=== PATIENT | female | born 1995 | race Two or more races ===

== ENCOUNTER 2021-08-11 16:40 | Inpatient (IN) | payer OTHER ==
[~2021-08-11] VITALS: Ht 167.6 cm; Wt 66.2 kg
[2021-08-11] MEDS ORDERED: IRON325 MG PO (20:11)
[2021-08-11] MEDS ORDERED: PRENATAL TABLE1 EAC1 PO (20:11)
[2021-08-15] MEDS ORDERED: IBUPROFEN600 MG PO (10:58)
== END 2021-08-15 14:23 | disposition home or self-care (01) | DRG 787 ==
LOC: LDR 16:40 → SURG-SUITE 08-12 20:33
PROVIDERS: Obstetrics & Gynecology; ADMIT Student in an Organized Health Care Education/Training Program; ATTEND Student in an Organized Health Care Education/Training Program
PROC: 3E0P7VZ Introduction of Hormone into Female Reproductive, Via Natural or Artificial Opening (ICD-10-PCS; 2021-08-11)
PROC: 4A1HXFZ Monitoring of Products of Conception, Cardiac Rhythm, External Approach (ICD-10-PCS; 2021-08-11)
PROC: 10907ZC Drainage of Amniotic Fluid, Therapeutic from Products of Conception, Via Natural or Artificial Opening (ICD-10-PCS; 2021-08-12)
PROC: 10D00Z1 Extraction of Products of Conception, Low, Open Approach (ICD-10-PCS; principal; 2021-08-12 18:00)
DX: O62.1 Secondary uterine inertia (principal); O41.03X0 Oligohydramnios, third trimester, not applicable or unspecified; O61.0 Failed medical induction of labor; Z37.0 Single live birth; Z3A.38 38 weeks gestation of pregnancy

== ENCOUNTER 2023-05-12 08:50 | Outpatient (CLI) | payer OTHER ==
[~2023-05-12 08:50] MED LIST: IBUPROFEN600 MG PO; IRON325 MG PO; PRENATAL TABLE1 EAC1 PO
== END 2023-05-12 10:20 | disposition home or self-care (01) ==
LOC: PRENATAL 08:50
PROVIDERS: ATTEND Obstetrics & Gynecology Maternal & Fetal Medicine
DX: O35.3XX0 Maternal care for (suspected) damage to fetus from viral disease in mother, not applicable or unspecified (principal); O44.00 Complete placenta previa NOS or without hemorrhage, unspecified trimester; Z3A.22 22 weeks gestation of pregnancy

== ENCOUNTER 2023-07-28 13:10 | Outpatient (CLI) | payer OTHER | END 2023-07-28 15:25 | disposition home or self-care (01) | LOC: PRENATAL 13:10 | PROVIDERS: ATTEND Obstetrics & Gynecology Maternal & Fetal Medicine | DX: O26.849 Uterine size-date discrepancy, unspecified trimester (principal); O36.8199 Decreased fetal movements, unspecified trimester, other fetus; O34.219 Maternal care for unspecified type scar from previous cesarean delivery; Z3A.33 33 weeks gestation of pregnancy ==

== ENCOUNTER 2023-09-07 08:47 | Inpatient (IN) | payer OTHER ==
[~2023-09-07] VITALS: Ht 167.6 cm; Wt 2.7 kg
[2023-09-07 09:47] LABS: PH,URINE 7.5 (5.0-8.0); URINE APPEARANCE Clear; URINE BACTERIA 33.9 uL (0.0-1933); URINE BILIRRUBIN Negative (NEGATIVE); URINE BLOOD Negative; URINE COLOR Yellow; URINE EPITHELIAL CELLS 13.7 uL (0.0-38.8); URINE GLUCOSE Negative (NEGATIVE); URINE LEUKOCYTE Negative; URINE NITRATE Negative; URINE PROTEIN Negative (NEGATIVE); URINE RBC 2.8 uL (0.0-20.8); URINE UROBILINOGEN 0.2 E.U./dl
[2023-09-07 09:50] LABS: URINE WBC 0.4 uL (0.0-23.2)
[2023-09-07 09:55] LABS: HEMATOCRIT 33.9 % (36.0-45.00); MEAN CELL VOLUME 96.3 fL (80.00-100.00); MEAN CORPUSCULAR HEMOGLOBIN 34.2 pg (27.00-32.0); MEAN CORPUSCULAR HGB CONC 35.5 g/dl (32.0-36.0); PLATELET COUNT 233 K/uL (150-450); RED BLOOD COUNT 3.52 M/uL (4.00-6.00); RED CELL DISTRIBUTION WIDTH 12.3 % (11.5-14.5)
[2023-09-07 10:47] LABS: BILIRUBIN TOTAL 0.52 mg/dL (0.3-1.2); CALCIUM 8.8 mg/dL (8.5-10.1); CREATININE SERUM 0.46 mg/dL (0.55-1.02); GFR 159.5; GLOBULINA 3.3 G/DL (2.4-3.5); POTASSIUM 3.59 mEq/L (3.5-5.1); TOTAL PROTEIN 6.3 gm/dL (6.4-8.2)
[2023-09-07 11:00] LABS: INR < 0.93; PARTIAL THROMBOPLASTIN TIME 25.8 SECONDS (22.0-34.0)
[2023-09-07 21:26] LABS: HEMATOCRIT 34.6 % (36.0-45.00); HEMOGLOBIN 11.8 g/dL (12.0-15.00); MEAN CELL VOLUME 97.2 fL (80.00-100.00); MEAN CORPUSCULAR HEMOGLOBIN 33.3 pg (27.00-32.0); MEAN CORPUSCULAR HGB CONC 34.2 g/dl (32.0-36.0); PLATELET COUNT 220 K/uL (150-450); RED BLOOD COUNT 3.55 M/uL (4.00-6.00); RED CELL DISTRIBUTION WIDTH 12.4 % (11.5-14.5)
[2023-09-10] MEDS ORDERED: Tylenol #3 PO (11:25)
[2023-09-10] MEDS ORDERED: NAPR500T14 PO (11:25)
== END 2023-09-10 12:36 | disposition home or self-care (01) | DRG 785 ==
LOC: OB/GYN 08:47 → LDR 08:47 → O/R 14:29 → OB/GYN 15:54
PROVIDERS: ADMIT Obstetrics & Gynecology; ATTEND Obstetrics & Gynecology
PROC: 0UB70ZZ Excision of Bilateral Fallopian Tubes, Open Approach (ICD-10-PCS; 2023-09-07)
PROC: 4A1HXCZ Monitoring of Products of Conception, Cardiac Rate, External Approach (ICD-10-PCS; 2023-09-07)
PROC: 10D00Z1 Extraction of Products of Conception, Low, Open Approach (ICD-10-PCS; principal; 2023-09-07 15:45)
DX: O34.211 Maternal care for low transverse scar from previous cesarean delivery (principal); Z30.2 Encounter for sterilization; Z3A.39 39 weeks gestation of pregnancy; Z37.0 Single live birth; Z20.822 Contact with and (suspected) exposure to COVID-19

== ENCOUNTER 2025-03-17 18:56 | Emergency (ER) | payer OTHER ==
[~2025-03-17] VITALS: Ht 167.6 cm; Wt 50.8 kg
[~2025-03-17 18:56] MED LIST changes: +NAPR500T14 PO; +Tylenol #3 PO
[2025-03-18] MEDS ORDERED: CEFTRIAXONE SODIUM 1,000 MG VIAL IM ONE (00:15)
[2025-03-18] MEDS ORDERED: KETOROLAC TROMETHAMINE 60 MG VIAL IM ONE ×2 (00:15→00:23)
[2025-03-18] MEDS ORDERED: CEFTRIAXONE SODIUM 1,000 MG VIAL ONE (00:23)
[2025-03-18] MEDS ORDERED: LIDOCAINE HCL 1% 10ML VIAL ONE (00:23)
[2025-03-18 00:58] LABS: BASO % 0.2 % (0.1-1.2); EOS # 0.23 (0.04-0.54); EOS % 1.9 % (0.7-7.0); HEMATOCRIT 34.9 % (34.1-44.9); HEMOGLOBIN 11.9 g/dL (11.2-15.7); LYMPH # 3.22 (1.18-3.74); LYMPH % 26.8 % (19.3-53.1); MONO # 0.86 (0.24-0.82); MONO % 7.2 % (4.7-12.5); NEUT # 7.65 (1.56-6.13); NEUT % 63.7 % (34.0-71.1); PLATELET COUNT 295 K/uL (163-369); RED BLOOD COUNT 3.72 M/uL (3.93-5.22); RED CELL DISTRIBUTION WIDTH 12.3 % (11.6-14.4)
[2025-03-18 01:09] LABS: PH,URINE 5.5 (5.0-8.0); URINE APPEARANCE Cloudy; URINE BILIRRUBIN Negative (NEGATIVE); URINE BLOOD Large; URINE COLOR Dark Yellow; URINE GLUCOSE Negative (NEGATIVE); URINE KETONE Negative (NEGATIVE); URINE LEUKOCYTE Moderate; URINE NITRATE Positive
[2025-03-18 01:12] LABS: URINE BACTERIA 1517.6 uL (0.0-1933); URINE EPITHELIAL CELLS 16.4 uL (0.0-38.8); URINE WBC 2652.9 uL (0.0-23.2)
[2025-03-18 01:13] LABS: URINE CAST 0.44 uL (0.0-1.40); URINE PROTEIN 100 (NEGATIVE)
[2025-03-18 01:22] LABS: ALBUMIN 4.1 gm/dL (3.4-5.0); BILIRUBIN TOTAL 0.35 mg/dL (0.3-1.2); CALCIUM 8.8 mg/dL (8.5-10.1); CREATININE SERUM 0.59 mg/dL (0.55-1.02); GFR 118.88; GLOBULINA 3.7 G/DL (2.4-3.5); POTASSIUM 3.64 mEq/L (3.5-5.1); TOTAL PROTEIN 7.8 gm/dL (6.4-8.2)
== END 2025-03-18 01:45 | disposition home or self-care (01) ==
LOC: ER 18:56
PROVIDERS: Preventive Medicine Public Health & General Preventive Medicine
DX: N39.0 Urinary tract infection, site not specified (principal)
CPT/HCPCS: 36415; 96372; 99282; J0696; J1885